=== PATIENT | male | born 1960 | race Caucasian/White ===

== ENCOUNTER 2024-03-13 16:38 | Emergency (ER) | payer BC ==
[~2024-03-13] VITALS: Ht 172.7 cm; Wt 74.8 kg
[2024-03-13 17:08] VITALS: BP 109/64; TEMP 97.9; O2SAT 98
== END 2024-03-13 19:15 | disposition left against medical advice (07) ==
LOC: ER 16:44
DX: S00.81XA Abrasion of other part of head, initial encounter (principal); I10 Essential (primary) hypertension; M25.551 Pain in right hip; W01.0XXA Fall on same level from slipping, tripping and stumbling without subsequent striking against object, initial encounter; Y93.89 Activity, other specified; Y92.89 Other specified places as the place of occurrence of the external cause; Y99.8 Other external cause status
CPT/HCPCS: 70450-TC; 72125-TC; 73700-TC; 82962-TC

== ENCOUNTER 2024-03-18 17:19 | Emergency (ER) | payer BC ==
[~2024-03-18] VITALS: Ht 172.7 cm; Wt 77.1 kg
[2024-03-18 21:18] VITALS: TEMP 98.4
[2024-03-18 23:00] VITALS: BP 100/61; O2SAT 95
== END 2024-03-18 23:00 | disposition home or self-care (01) ==
LOC: ER 17:34
DX: S02.2XXA Fracture of nasal bones, initial encounter for closed fracture (principal); I10 Essential (primary) hypertension; I67.82 Cerebral ischemia; M47.812 Spondylosis without myelopathy or radiculopathy, cervical region; R41.82 Altered mental status, unspecified; W05.0XXA Fall from non-moving wheelchair, initial encounter; Y93.89 Activity, other specified; Y92.89 Other specified places as the place of occurrence of the external cause; Y99.8 Other external cause status
CPT/HCPCS: 70450-TC; 70486-TC; 72125-TC